=== PATIENT | male | born 2005 | race Caucasian/White ===

== ENCOUNTER 2025-03-28 20:03 | Emergency (ER) | payer OTHER ==
[~2025-03-28] VITALS: Ht 205.7 cm; Wt 147.4 kg
[~2025-03-28 20:03] MED LIST: OMNICEF; OTC COLD MEDS; PRED1SY
[2025-03-28] MEDS ORDERED: Morphine Sulfate 4 MG/1 ML Injection IV ONE (20:15)
[2025-03-28] MEDS ORDERED: HYDROmorphone HCl/Pf 1MG SYR IV PRN (21:00)
[2025-03-28] MEDS ORDERED: Propofol 10mg/ml 20 ml Vial (Procedural) IV ONE (21:20)
[2025-03-28] MEDS ORDERED: Ketamine HCL 10 MG/ML 5ML SYR IV ONE (21:20)
[2025-03-28] MEDS ORDERED: Ketamine HCl 100 MG / ML 5ML Vial IV ONE ×2 (21:20→21:30)
[2025-03-28 21:25] LABS: BASOPHILS ABSOLUTE AUTO 0.05 K/mm3 (0.00-0.23); BASOPHILS PERCENT AUTO 0 % (0-2); EOSINOPHILS ABSOLUTE AUTO 0.08 K/mm3 (0.00-0.68); EOSINOPHILS PERCENT AUTO 1 % (0-6); Hematocrit 39.5 % (37.0-53.0); Hemoglobin 13.4 g/dL (13.5-17.5); IMMATURE GRAN ABSOLUTE AUTO 0.05 K/mm3 (0.00-0.10); IMMATURE GRAN PERCENT AUTO 0 % (0-1); LYMPHOCYTES ABSOLUTE AUTO 1.97 K/mm3 (0.84-5.20); LYMPHOCYTES PERCENT AUTO 13 % (21-46); MONOCYTES ABSOLUTE AUTO 1.57 K/mm3 (0.16-1.47); MONOCYTES PERCENT AUTO 10 % (4-13); Mean Corpuscular HGB Conc 33.9 g/dL (31.5-36.5); Mean Corpuscular Volume 90 fL (80-100); NEUTROPHILS ABSOLUTE AUTO 11.47 K/mm3 (1.96-9.15); NEUTROPHILS PERCENT AUTO 76 % (41-73); NRBC ABSOLUTE 0.00 K/mm3 (0.00-0.02); NRBC Auto 0.0 /100 WBC (0.0-0.2); Platelet Count 213 K/mm3 (150-400); RDW Coefficient Variation 12.7 % (11.7-14.2); RDW Standard Deviation 41.9 fL (35.1-46.3)
[2025-03-28 21:44] LABS: Anion Gap 11.0 mmol/L (3-11); Blood Urea Nitrogen 25.0 mg/dL (8-24); CO2, Blood 25.0 mmol/L (21-32); Calcium, Blood 8.8 mg/dL (8.5-10.1); Chloride, Blood 108.0 mmol/L (98-108); Creatinine, Blood 0.74 mg/dL (0.60-1.20); Glucose, Blood 109.0 mg/dL (70-99); Potassium, Blood 3.5 mmol/L (3.5-5.5); Sodium, Blood 140.0 mmol/L (136-145)
[2025-03-29] MEDS ORDERED: Ondansetron HCl 2 MG / ML 2ML Vial IV PRN (03:45)
[2025-03-29] MEDS ORDERED: HYDROmorphone HCl/Pf 1MG SYR IV PRN (03:45)
[2025-03-29] MEDS ORDERED: HYDROcodone 5-APAP 325 TAB PO PRN (03:45)
[2025-03-29] MEDS ORDERED: Diazepam 5 MG / ML 2ML SYR IV ONE (04:40)
[2025-03-29 07:51] VITALS: BP 153/100
--- NOTE | 2025-03-29 08:00 | NUR ---
pt to room 223 from ed. knee immobilizer on l knee. sl bilateral flushed and to sl. medicated for pain. will continue to monitor.
[2025-03-29] MEDS ORDERED: BUPROPION XL150 M1 PO (09:10)
[2025-03-29 15:08] VITALS: BP 156/90
[2025-03-29 15:09] VITALS: BP 148/93
[2025-03-29] MEDS ORDERED: ACET500 PO (16:05)
[2025-03-29] MEDS ORDERED: IBUP800 PO (16:06)
[2025-03-29] MEDS ORDERED: OXYC5 PO (16:06)
--- NOTE | 2025-03-29 16:15 | NUR ---
DC instruct reviewed. stated understanding. discharged to pov with printed instruct and with handwritten rxs.
== END 2025-03-29 08:01 | disposition other institution (70) ==
LOC: ER 20:03 → SURS 03-29 03:46 → ER 03-29 03:46 → ERHOLD 03-29 03:46 → ER 03-29 07:44 → EOR 03-29 07:44 → SURS 03-29 07:44 → EOR 03-29 07:44 → SURS 03-29 07:44 → ERHOLD 03-29 07:44 → SURS 03-29 08:01
PROVIDERS: Student in an Organized Health Care Education/Training Program
DX: S83.195A Other dislocation of left knee, initial encounter (principal); D72.829 Elevated white blood cell count, unspecified; R73.9 Hyperglycemia, unspecified; X50.0XXA Overexertion from strenuous movement or load, initial encounter; Y93.68 Activity, volleyball (beach) (court)
CPT/HCPCS: 27550; 73560-LT; 73706; 76000; 80048; 85025; 99152; 99285-25; A9270; J1171; J2270; J2704; J3360; Q9967